=== PATIENT | female | born 1995 | race Caucasian/White ===

== ENCOUNTER 2020-10-27 16:01 | Emergency (ER) | payer BC ==
[2020-10-27 16:04] VITALS: O2SAT 100
[2020-10-27] MEDS ORDERED: Sodium Chloride 0.9% 1000 ML 1,000 ML IV STA (16:07)
[2020-10-27] MEDS ORDERED: Sodium Chloride 0.9% 1000 ML 1,000 ML ONE (16:17)
[2020-10-27 16:25] LABS: Absolute Neutrophil Ct (ANC) 10.87 (1.4-6.9); BASOPHIL % 0.2 % (0.0-0.4); Basophil (Absolute #) 0.03 (0-0.4); Eosinophil % 1.3 % (0.00-5.0); Hematocrit 41.4 % (35-47); Hemoglobin 13.6 gm/dl (12.0-16.0); Lymphocytes % 17.5 % (24.0-44.0); Mean Cell Volume 89.8 fl (78-100); Mean Corpuscular Hemoglobin 29.5 pg (26-32); Mean Corpuscular Hgb Concent. 32.9 g/dl (32-36); Mean Platelet Volume 9.7 fl (7.5-11.0); Monocyte (Absolute #) 1.12 (0.0-1.3); Monocytes % 7.6 % (0.0-12.0); Neutrophil % 73.4 % (36.0-66.0); Platelet Count 399 K/mm3 (150-450); Red Blood Count 4.61 M/mm3 (4.1-5.4); Red Cell Distribution Width 12.1 % (11.5-14.0); White Blood Count 14.8 K/mm3 (4.0-10.5)
[2020-10-27 16:47] LABS: Appearance CLOUDY (CLEAR); Bacteria MANY /HPF (NEGATIVE); Bilirubin NEGATIVE (NEGATIVE); Blood LARGE Ery/ul (0-5); Epithelial Cells RARE /HPF (FEW); Glucose 50 mg/dL (NEGATIVE); Ketones SMALL (NEGATIVE); Leukocyte Esterase TRACE (NEGATIVE); Nitrite POSITIVE (NEGATIVE); Protein,Urine Dip 100 (Negative); Specific Gravity 1.027 (1.005-1.025); Urobilinogen NEGATIVE mg/dL (0-1); WBC >100 /HPF (0-5)
[2020-10-27 16:48] LABS: RBC >101 /HPF (0-2)
[2020-10-27 16:58] LABS: ALBUMIN 3.9 g/dL (3.5-5.0); ALKALINE PHOSPHATASE 58 U/L (38-126); ANION GAP 11.5 MEQ/L (5-15); BLOOD UREA NITROGEN 7 mg/dL (7-17); CHLORIDE 105 mmol/L (98-107); Carbon Dioxide 22 mmol/L (22-30); Creatinine 1 0.59 mg/dL (0.52-1.04); EST GLOMERULAR FILTRATION RATE > 60.0 ML/MIN; Glucose 86 mg/dL (74-106); Potassium 3.4 mmol/L (3.5-5.1); SGOT/AST 31 U/L (14-36); SGPT/ALT 31 U/L (0-35); SODIUM 136 mmol/L (137-145); Total Protein 6.8 g/dL (6.3-8.2)
[2020-10-27 17:16] VITALS: BP 123/76; PULSE 89
--- NOTE | 2020-10-27 17:20 | ERPHSYRPT ---
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 pt reports minor lower back discomfort/cramping. pt is approx 9 weeks with estimated due date of 05/29/21. Triage Nursing Assessment: pt is aox3, afebrile, resps easy and non labored, radial pulses strong and equal, cap refill < 3 seconds, pt skin pink warm dry. pt abd soft, non tender. Physician History: Patient is a 2 para 0 AB 1 who presents at 9 weeks gestation with some bright red bleeding for 30 minutes. She has been using panty liners she has had no to minimal cramping passed no clots. Have a miscarriage at 5 weeks in March 2020 Timing/Duration: today Activites at Onset: none Pain Radiation: none Severity of Pain-Max: none Severity of Pain-Current: none Prior abdominal problems: similar symptoms Associated Symptoms: , other (Bright red bleeding without clots) Allergies/Adverse Reactions: No Known Drug Allergies Allergy (Unverified 10/27/20 16:21) Hx Tetanus, Diphtheria Vaccination/Date Given: Yes Hx Influenza Vaccination/Date Given: Yes Hx Pneumococcal Vaccination/Date Given: No Travel Risk - International Travel Have you traveled outside of the country in past 3 weeks: No - Coronavirus Screening Are you exhibiting any of the following symptoms?: No Close contact with a COVID-19 positive Pt in past 14-21 Days: No - Vaccine Status Have you recieved a Covid-19 vaccination: No - Review of Systems Constitutional: No Fever, No Chills Eyes: No Symptoms Ears, Nose, & Throat: No Symptoms Respiratory: No Cough, No Dyspnea Cardiac: No Chest Pain, No Edema, No Syncope Abdominal/Gastrointestinal: No Abdominal Pain, No Nausea, No Vomiting, No Diarrhea Genitourinary Symptoms: Vaginal Bleeding, No Dysuria Musculoskeletal: No Back Pain, No Neck Pain Skin: No Rash Neurological: No Dizziness, No Focal Weakness, No Sensory Changes Psychological: No Symptoms Endocrine: No Symptoms All Other Systems: Reviewed and Negative - Past Medical History Pertinent Past Medical History: No - Past Surgical History Past Surgical History: No - Social History Smoking Status: Never smoker Drug Use: none Patient Lives Alone: No - Female History Hx Last Menstrual Period: 08/2020 Hx Now: Yes Expected Date of Delivery: 05/29/21 - Nursing Vital Signs Nursing Vital Signs: Initial Vital Signs Temperature 97.9 F 10/27/20 16:02 Pulse Rate 98 H 10/27/20 16:02 Respiratory Rate 20 10/27/20 16:02 Blood Pressure 162/70 10/27/20 16:02 O2 Sat by Pulse Oximetry 100 10/27/20 16:02 Pain Scale Pain Intensity 0 - Physical Exam General Appearance: mild distress, alert Eye Exam: PERRL/EOMI, eyes nml inspection Ears, Nose, Throat Exam: normal ENT inspection, TMs normal, pharynx normal, moist mucous membranes Neck Exam: normal inspection, non-tender, supple, full range of motion Respiratory Exam: normal breath sounds, lungs clear, No respiratory distress Cardiovascular Exam: regular rate/rhythm, normal heart sounds, normal peripheral pulses Gastrointestinal/Abdomen Exam: soft, No tenderness, No mass Back Exam: normal inspection, normal range of motion, No CVA tenderness, No vertebral tenderness Extremity Exam: normal inspection, normal range of motion, pelvis stable Neurologic Exam: alert, oriented x 3, cooperative, mental health counselor II-XII nml as tested, normal mood/affect, sensation nml, No motor deficits Skin Exam: normal color, warm, dry Lymphatic Exam: No adenopathy SpO2: 100 - Radiology Ultrasound Exam OB Ultrasound: Other (Ultrasound was done initial report is that everything is normal except for a very small subchorionic hemorrhage otherwise normal heart tones 178) Ordered Tests: Active Orders 24 hr Category Date Time Status Heart Tones-ED STAT Care 10/27/20 16:07 Active OB <14 WKS 1ST GESTATION [US] Stat Exams 10/27/20 17:04 Taken CBC W DIFF Stat Lab 10/27/20 16:05 Completed CMP Stat Lab 10/27/20 16:05 Completed CULTURE,URINE Stat Lab 10/27/20 16:16 Received UA W/RFX UR CULTURE Stat Lab 10/27/20 16:16 Completed Medication Summary Generic Name Dose Route Start Last Admin Trade Name Freq PRN Reason Stop Dose Admin Sodium Chloride 1,000 mls @ 999 mls/hr 10/27/20 16:07 10/27/20 16:24 Sodium Chloride 0.9% 1000 Ml IV 10/27/20 17:07 999 mls/hr .[id number] STA Administration Discontinued Medications Generic Name Dose Route Start Last Admin Trade Name Juan Ramon PRN Reason Stop Dose Admin Sodium Chloride Confirm 10/27/20 16:17 Sodium Chloride 0.9% 1000 Ml Administered 10/27/20 16:18 Dose 1,000 mls @ ud .ROUTE .[facility] Lab/Rad Data: Laboratory Result Diagrams 10/27/20 16:05 10/27/20 16:05 Laboratory Results 10/27/20 10/27/20 10/27/20 Range/Units 16:16 16:05 16:05 WBC 14.8 H (4.0-10.5) K/mm3 RBC 4.61 (4.1-5.4) M/mm3 Hgb 13.6 (12.0-16.0) gm/dl Hct 41.4 (35-47) % MCV 89.8 (78-100) fl MCH 29.5 (26-32) pg MCHC 32.9 (32-36) g/dl RDW 12.1 (11.5-14.0) % Plt Count 399 (150-450) K/mm3 MPV 9.7 (7.5-11.0) fl Gran % 73.4 H (36.0-66.0) % Eos # (Auto) 0.20 (0-0.5) Absolute Lymphs (auto) 2.60 (1.0-4.6) Absolute Monos (auto) 1.12 (0.0-1.3) Lymphocytes % 17.5 L (24.0-44.0) % Monocytes % 7.6 (0.0-12.0) % Eosinophils % 1.3 (0.00-5.0) % Basophils % 0.2 (0.0-0.4) % Absolute Granulocytes 10.87 H (1.4-6.9) Basophils # 0.03 (0-0.4) Sodium 136 L (137-145) mmol/L Potassium 3.4 L (3.5-5.1) mmol/L Chloride 105 (98-107) mmol/L Carbon Dioxide 22 (22-30) mmol/L Anion Gap 11.5 (5-15) MEQ/L BUN 7 (7-17) mg/dL Creatinine 0.59 (0.52-1.04) mg/dL Estimated GFR > 60.0 ML/MIN Glucose 86 (74-106) mg/dL Calcium 9.0 (8.4-10.2) mg/dL Total Bilirubin 0.20 (0.2-1.3) mg/dL AST 31 (14-36) U/L ALT 31 (0-35) U/L Alkaline Phosphatase 58 (38-126) U/L Serum Total Protein 6.8 (6.3-8.2) g/dL Albumin 3.9 (3.5-5.0) g/dL Urine Color RED (YELLOW) Urine Appearance CLOUDY (CLEAR) Urine pH 6.0 (5-6) Ur Specific Vowinckel 1.027 (1.005-1.025) Urine Protein 100 (Negative) Urine Ketones SMALL (NEGATIVE) Urine Blood LARGE (0-5) Major/ul Urine Nitrite POSITIVE (NEGATIVE) Urine Bilirubin NEGATIVE (NEGATIVE) Urine Urobilinogen NEGATIVE (0-1) mg/dL Ur Leukocyte Esterase TRACE (NEGATIVE) Urine WBC (Auto) >100 (0-5) /HPF Urine RBC (Auto) >101 (0-2) /HPF U Epithel Cells (Auto) RARE (FEW) /HPF Urine Bacteria (Auto) MANY (NEGATIVE) /HPF Urine Culture Reflexed YES (NO) Urine Glucose 50 (NEGATIVE) mg/dL - Progress Progress: improved Air Movement: fair - Departure Departure Disposition: Home Clinical Impression: Threatened miscarriage in early Condition: Stable Critical Care Time: No Referrals: CARMELITA COONEY [Primary Care Provider] - Instructions: Bleeding With (DC)
--- NOTE | 2020-10-27 17:45 | XRAY ---
Exam: OB ultrasound less than 14 weeks from 10/27/2020. Comparison: None. Indication: Patient with vaginal bleeding. Findings: Transverse and longitudinal transabdominal images of the pelvis were obtained. The maternal uterus measures 9.8 cm in length, 6.0 cm in AP depth, and 6.7 cm in width. It is anteflexed. The uterus contains a normal positioned and shaped gestational sac within the upper uterine segment. The gestational sac contains a single live intrauterine fetus with a heart rate 178 bpm. The crown-rump length measured 2.63 cm consistent with a gestational age of 9 weeks, 3 days plus or -0 weeks, 6 days yielding an estimated due date of 05/29/2021. This is in good accordance with the gestational age by dates (also 9 weeks, 3 days). A 3.8 mm yolk sac is seen within the gestational sac. There is a suggestion of a small 1.5 cm x 0.4 cm x 1.6 cm subchorionic hemorrhage at the inferior posterior margin of the gestational sac. The human performance technologist also took an image of a tiny hypoechoic density measuring about 8 mm x 7.5 mm in cross section within the superior aspect of the uterine fundus. I don't believe this is significant. There is no free intraperitoneal fluid within the cul-de-sac. The maternal right ovary measures 2.9 cm x 2.6 cm x 2.5 cm and reveals normal color blood flow and Doppler signal within it. The maternal left ovary measures 3.3 cm x 2.8 cm x 1.6 cm and reveals normal color blood flow and Doppler signal within it. Impression: 1. Single live intrauterine fetus within a normal positioned and shaped gestational sac within the upper uterine segment. The crown-rump length of the fetus suggest a gestational age of 9 weeks, 3 days. heart rate is 178 bpm. A 3.8 mm yolk sac was seen. No abnormal fluid is seen extending into the lower uterine canal. 2. Incidentally, there appears to be a small subchorionic hemorrhage at the inferior posterior margin of the gestational sac, as discussed above. 3. Both maternal ovaries appeared unremarkable. No evidence of ovarian torsion was seen.. There was no evidence of free intraperitoneal fluid within the cul-de-sac.
== END 2020-10-27 17:45 | disposition home or self-care (01) ==
LOC: ED 16:01
DX: O20.0 Threatened abortion (principal); Z3A.09 9 weeks gestation of pregnancy
CPT/HCPCS: 36415; 76801; 80053; 81001; 85025; 86901; 87086; 96360; 99284

== ENCOUNTER 2021-05-13 18:08 | Observation (INO) | payer BC ==
[2021-05-13 18:42] LABS: Appearance SLIGHTLY CLOUDY (CLEAR); Bacteria FEW /HPF (NEGATIVE); Bilirubin NEGATIVE (NEGATIVE); Blood NEGATIVE Ery/ul (0-5); Epithelial Cells FEW /HPF (FEW); Glucose NEGATIVE (NEGATIVE); Ketones SMALL (NEGATIVE); Leukocyte Esterase MODERATE (NEGATIVE); Mucus MODERATE /HPF (NEGATIVE); Nitrite NEGATIVE (NEGATIVE); Protein,Urine Dip 100 (Negative); RBC 0-2 /HPF (0-2); Specific Gravity 1.031 (1.005-1.025); Urobilinogen NEGATIVE mg/dL (0-1)
[2021-05-13 18:49] VITALS: BP 128/72; PULSE 92
[2021-05-13] MEDS ORDERED: Macrobid 100MG Capsule ONE (19:59)
[2021-05-13] MEDS ORDERED: Macrobid 100MG Capsule PO ONE (20:00)
== END 2021-05-13 20:15 | disposition home or self-care (01) ==
LOC: OB 18:08
PROVIDERS: ADMIT Obstetrics & Gynecology; ATTEND Obstetrics & Gynecology
DX: Z34.83 Encounter for supervision of other normal pregnancy, third trimester (principal); Z3A.37 37 weeks gestation of pregnancy
CPT/HCPCS: 81001; 87086; G0378; A9270-GY

== ENCOUNTER 2021-05-18 16:56 | Observation (INO) | payer BC ==
[2021-05-18 17:33] VITALS: BP 135/76; PULSE 106; O2SAT 97
== END 2021-05-18 18:10 | disposition home or self-care (01) ==
LOC: OB 16:56
PROVIDERS: ADMIT Obstetrics & Gynecology; ATTEND Obstetrics & Gynecology
DX: Z34.83 Encounter for supervision of other normal pregnancy, third trimester (principal); Z3A.38 38 weeks gestation of pregnancy
CPT/HCPCS: G0378

== ENCOUNTER 2021-05-19 10:30 | Inpatient (IN) | payer BC ==
[2021-05-19] MEDS ORDERED: Ephedrine Sulfate 50 MG/ML IV PRN (10:57)
[2021-05-19] MEDS ORDERED: Lactated Ringers 1,000 ML IV ONE (10:57)
[2021-05-19] MEDS ORDERED: OB EPIDURAL NAROPIN/SUFENTANIL IN NACL EPIDURAL PRN (10:57)
[2021-05-19] MEDS ORDERED: Nubain 10 MG/ML IV PRN (10:59)
[2021-05-19] MEDS ORDERED: XYLOCAINE 1% HCL 20 ML MDV IJ PRN (10:59)
[2021-05-19] MEDS ORDERED: STADOL 2 MG IV PRN (10:59)
[2021-05-19] MEDS ORDERED: Zofran 4 MG/2 ML VIAL IV PRN (10:59)
[2021-05-19] MEDS ORDERED: PITOCIN 30 UNITS/ LR 500 ML 30 UNITS/500 ML PLAST..BAG IV SCH ×2 (11:00→12:30)
[2021-05-19] MEDS ORDERED: FENTANYL 2 MCG-BUPIV 0.125%-NS 250 ML Epidur 250 ML EPIDURAL PRN (11:11)
[2021-05-19 11:39] LABS: Absolute Neutrophil Ct (ANC) 15.07 (1.4-6.9); BASOPHIL % 0.2 % (0.0-0.4); Basophil (Absolute #) 0.04 (0-0.4); Eosinophil % 1.6 % (0.00-5.0); Eosinophil (Absolute #) 0.29 (0-0.5); Hemoglobin 10.8 gm/dl (12.0-16.0); Lymphocyte (Absolute #) 1.51 (1.0-4.6); Lymphocytes % 8.4 % (24.0-44.0); Mean Cell Volume 91.6 fl (78-100); Mean Corpuscular Hemoglobin 28.3 pg (26-32); Mean Corpuscular Hgb Concent. 30.9 g/dl (32-36); Monocyte (Absolute #) 1.13 (0.0-1.3); Monocytes % 6.3 % (0.0-12.0); Neutrophil % 83.5 % (36.0-66.0); Platelet Count 306 K/mm3 (150-450); Red Blood Count 3.82 M/mm3 (4.1-5.4); Red Cell Distribution Width 12.7 % (11.5-14.0)
[2021-05-19] MEDS ORDERED: BRETHINE 1 MG/ML SQ PRN (12:29)
[2021-05-19 12:46] LABS: ABO TYPING A; Antibody Screen NEGATIVE (NEGATIVE); RH TYPING POSITIVE
[2021-05-19] MEDS ORDERED: CORTISONE 1% CREAM TP PRN (17:44)
[2021-05-19] MEDS ORDERED: Dermoplast Spray TP PRN (17:44)
[2021-05-19] MEDS ORDERED: LANSINOH 40 GM TOP PRN (17:44)
[2021-05-19] MEDS ORDERED: TUCKS TP PRN (17:44)
[2021-05-19] MEDS: Colace 100 MG PO SCH (21:00)
[2021-05-19] MEDS: MOTRIN 400 MG PO PRN (22:45)
[2021-05-19] MEDS: TYLENOL EXTRA STRENGTH 500 MG PO PRN (23:23)
[2021-05-20] MEDS: TYLENOL EXTRA STRENGTH 500 MG PO PRN (03:08)
[2021-05-20] MEDS ORDERED: MOTRIN 400 MG ONE (06:07)
[2021-05-20] MEDS: MOTRIN 400 MG PO PRN ×2 (06:09→17:24)
[2021-05-20 07:09] LABS: Hemoglobin 9.9 gm/dl (12.0-16.0); Mean Corpuscular Hemoglobin 28.4 pg (26-32); Mean Corpuscular Hgb Concent. 30.9 g/dl (32-36); Platelet Count 284 K/mm3 (150-450); Red Blood Count 3.48 M/mm3 (4.1-5.4); Red Cell Distribution Width 12.9 % (11.5-14.0); White Blood Count 23.6 K/mm3 (4.0-10.5)
[2021-05-20] MEDS ORDERED: Adacel Vial IM ONE (08:00)
[2021-05-20 08:33] LABS: ANISOCYTOSIS 1+; BAND 2 % (0.0-2.0); Eosinophil 2 % (0.00-3.0); Lymphocytes 14 % (24-44); Monocyte 3 % (0.0-12.0); Neutrophils 79 % (36.0-66.0); Platelet Estimate NORMAL (NORMAL); Total Cells Counted 100; Toxic Granulation 1+
[2021-05-20] MEDS ORDERED: FERREX 150 PO SCH (10:00)
--- NOTE | 2021-05-20 10:12 | PCM.NOTE ---
Date and Time: 05/20/21 1010 Subjective Assessment: PPD 1 SP PT RESTING IN BED AND DOING WELL. PT AMBNULATING AND TOLERATING DIET VSS AFEBRILE ABD; SOFT UTERUS; FIRM LOCHIA; MILD A/P SP PPD 1 WITH UTI PT DESIRES TO BE DISCHARGED TODAY WILL GO HOME ON KEFLEX 500MG Q 6 HRS SHOULD FU IN OFFICE IN 3 WKS OBJECTIVE DATA Vital Signs: Vital Signs - 24 hr Temp Pulse Resp BP BP Pulse Ox 05/20/21 05:00 96.4 F 97 H 18 120/61 05/19/21 23:30 98.9 F 101 H 18 107/60 05/19/21 20:00 99.1 F 113 H 20 126/75 05/19/21 18:40 98.2 F 117 H 20 118/62 98 05/19/21 17:30 98.2 F 106 H 16 109/74 98 05/19/21 17:15 98.2 F 100 H 16 102/63 05/19/21 17:00 98.2 F 112 H 16 101/63 05/19/21 16:24 98.2 F 100 H 20 162/60 05/19/21 16:15 98.2 F 100 H 20 162/60 05/19/21 16:00 104 H 20 135/97 05/19/21 15:15 103 H 20 115/53 05/19/21 15:00 100 H 20 127/76 05/19/21 14:45 96 H 20 124/57 05/19/21 14:15 104 H 20 138/74 05/19/21 14:00 100 H 20 134/64 05/19/21 13:45 94 H 20 124/70 05/19/21 13:30 98 H 20 125/76 05/19/21 13:15 98 H 20 125/76 05/19/21 13:00 100 H 20 120/73 98 05/19/21 12:00 97.8 F 100 H 20 114/65 98 05/19/21 11:30 97.8 F 102 H 20 114/78 125/71 98 05/19/21 11:00 97.8 F 114 H 20 130/75 98 05/19/21 10:45 114 H 20 130/75 05/19/21 10:30 90 18 114/69 Pain Assessment - Last Documented Pain Intensity [Bilateral 8 Posterior] Pain Intensity 2 Pain Scale Used 0-10 Pain Scale Intake and Output: Intake & Output 05/17/21 05/18/21 05/19/21 05/20/21 11:59 11:59 11:59 11:59 Intake Total 800 Balance 800 Weight 103.419 kg Lab Results: Lab Results-Last 24 Hours 05/19/21 05/19/21 05/20/21 Range/Units 10:59 11:30 06:56 WBC 18.0 H 23.6 H (4.0-10.5) K/mm3 RBC 3.82 L 3.48 L (4.1-5.4) M/mm3 Hgb 10.8 L 9.9 L (12.0-16.0) gm/dl Hct 35.0 32.0 L (35-47) % MCV 91.6 92.0 (78-100) fl MCH 28.3 28.4 (26-32) pg MCHC 30.9 L 30.9 L (32-36) g/dl RDW 12.7 12.9 (11.5-14.0) % Plt Count 306 284 (150-450) K/mm3 MPV 11.0 11.0 (7.5-11.0) fl Gran % 83.5 H (36.0-66.0) % Eos # (Auto) 0.29 (0-0.5) Absolute Lymphs (auto) 1.51 (1.0-4.6) Absolute Monos (auto) 1.13 (0.0-1.3) Lymphocytes % 8.4 L (24.0-44.0) % Monocytes % 6.3 (0.0-12.0) % Eosinophils % 1.6 (0.00-5.0) % Basophils % 0.2 (0.0-0.4) % Absolute Granulocytes 15.07 H (1.4-6.9) Segmented Neutrophils 79 H (36.0-66.0) % Band Neutrophils 2 (0.0-2.0) % Lymphocytes (Manual) 14 L (24-44) % Monocytes (Manual) 3 (0.0-12.0) % Eosinophils (Manual) 2 (0.00-3.0) % Basophils # 0.04 (0-0.4) Toxic Granulation 1+ Platelet Estimate NORMAL (NORMAL) RBC Morphology ABNORMAL Anisocytosis 1+ ABO Group A Rh Factor POSITIVE Antibody Screen NEGATIVE (NEGATIVE) Assessment/Plan (1) Vaginal delivery Current Visit: Yes Status: Acute Code(s): O80 - ENCOUNTER FOR FULL-TERM UNCOMPLICATED DELIVERY
--- NOTE | 2021-05-20 10:18 | PCM.DS ---
Discharge Summary Date of Admission: 05/19/21 10:30 Admitting Physician: KATARZYNA JACINTO DO Primary Care Provider: CARMELITA COONEY Allergies Allergies No Known Drug Allergies Allergy (Unverified 10/27/20 16:21) Hospital Summary - Hospital Course Hospital Course: PT ADMITTED ON MAY 19 FOR BEING IN LABOR AND SUBSEQUENTLY DELIVERED LIVE BABY BOY VIA WITHOUT COMPLICATION. DURING PERIOD DID WELL HOWEVER NOTED HAVING ELEVATED WBC. PT WITH KNOWN HX OF UTI DID NOT TAKE HER DOSE OF MACROBID. PT DESIRES DISCHARGE TODAY AND WILL GO HOME HOWEVER WILL GIVE RX OF KEFLEX QID FOR 7 DAYS. ALL QUESTIONS ANSWERED TO HER SATISFACTION AND AT THIS TIME SINCE VSS WILL GO HOME WITH FU IN 3 WKS. - Vitals & Intake/Output Vital Signs: Vital Signs Temperature 96.4 F 05/20/21 05:00 Pulse Rate 97 H 05/20/21 05:00 Respiratory Rate 18 05/20/21 05:00 Blood Pressure 120/61 05/20/21 05:00 O2 Sat by Pulse Oximetry 98 05/19/21 18:40 Intake & Output: Intake & Output 05/17/21 05/18/21 05/19/21 05/20/21 11:59 11:59 11:59 11:59 Intake Total 800 Balance 800 Weight 103.419 kg - Lab Result Diagrams: 05/20/21 06:56 Lab Results-Last 24 Hrs: Lab Results-Last 24 Hours 05/19/21 05/19/21 05/20/21 Range/Units 10:59 11:30 06:56 WBC 18.0 H 23.6 H (4.0-10.5) K/mm3 RBC 3.82 L 3.48 L (4.1-5.4) M/mm3 Hgb 10.8 L 9.9 L (12.0-16.0) gm/dl Hct 35.0 32.0 L (35-47) % MCV 91.6 92.0 (78-100) fl MCH 28.3 28.4 (26-32) pg MCHC 30.9 L 30.9 L (32-36) g/dl RDW 12.7 12.9 (11.5-14.0) % Plt Count 306 284 (150-450) K/mm3 MPV 11.0 11.0 (7.5-11.0) fl Gran % 83.5 H (36.0-66.0) % Eos # (Auto) 0.29 (0-0.5) Absolute Lymphs (auto) 1.51 (1.0-4.6) Absolute Monos (auto) 1.13 (0.0-1.3) Lymphocytes % 8.4 L (24.0-44.0) % Monocytes % 6.3 (0.0-12.0) % Eosinophils % 1.6 (0.00-5.0) % Basophils % 0.2 (0.0-0.4) % Absolute Granulocytes 15.07 H (1.4-6.9) Segmented Neutrophils 79 H (36.0-66.0) % Band Neutrophils 2 (0.0-2.0) % Lymphocytes (Manual) 14 L (24-44) % Monocytes (Manual) 3 (0.0-12.0) % Eosinophils (Manual) 2 (0.00-3.0) % Basophils # 0.04 (0-0.4) Toxic Granulation 1+ Platelet Estimate NORMAL (NORMAL) RBC Morphology ABNORMAL Anisocytosis 1+ ABO Group A Rh Factor POSITIVE Antibody Screen NEGATIVE (NEGATIVE) Final Diagnosis/Problem List - Final Discharge Diagnosis/Problem (1) Vaginal delivery Current Visit: Yes Status: Acute Code(s): O80 - ENCOUNTER FOR FULL-TERM UNCOMPLICATED DELIVERY - Discharge Disposition: Home, Self-Care Condition: Stable Prescriptions: New Cephalexin Mh 500 mg [Keflex 500 mg] 500 mg PO Q6H 7 Days #28 cap No Action Vits W-Ca,Fe,FA(<1Mg) [] 1 tablet PO DAILY Nitrofurantoin Monohyd/M-Cryst [Macrobid 100 mg Capsule] 100 mg PO BID 7 Days #14 cap Follow up with: CARMELITA COONEY NP [Primary Care Provider] - KATARZYNA JACINTO DO [ACTIVE STAFF] - 3 weeks
[2021-05-20] MEDS: Colace 100 MG PO SCH (10:31)
[2021-05-20] MEDS: KEFLEX 500 MG PO SCH ×2 (11:25→17:24)
[2021-05-20 17:44] VITALS: BP 103/50; PULSE 81; O2SAT 97
== END 2021-05-20 18:34 | disposition home or self-care (01) | DRG 769 ==
LOC: OB 10:30 → UNDOADMOB 10:30 → INTOOBSV 10:30 → OBSVTOIN 10:30
PROVIDERS: ADMIT Obstetrics & Gynecology; ATTEND Obstetrics & Gynecology
PROC: 0KQM0ZZ Repair Perineum Muscle, Open Approach (ICD-10-PCS; principal; 2021-05-19)
DX: O70.1 Second degree perineal laceration during delivery (principal); Z3A.38 38 weeks gestation of pregnancy; Z37.0 Single live birth; R79.89 Other specified abnormal findings of blood chemistry
CPT/HCPCS: 36415; 59400; 85025; 86850; 86900; 86901; 90715; 96372; J2590; A9270-GY

== ENCOUNTER 2021-09-05 00:31 | Observation (INO) | payer BC ==
[2021-09-05] MEDS ORDERED: Zofran 4 MG/2 ML VIAL ONE ×2 (00:48→04:57)
[2021-09-05] MEDS ORDERED: Sodium Chloride 0.9% 1000 ML 1,000 ML IV STA ×2 (00:48→02:35)
[2021-09-05] MEDS ORDERED: Sodium Chloride 0.9% 1000 ML 1,000 ML ONE ×2 (00:48→02:36)
[2021-09-05] MEDS ORDERED: Zofran 4 MG/2 ML VIAL IV ONE ×2 (00:48→04:50)
--- NOTE | 2021-09-05 01:04 | ERPHSYRPT ---
- History of Present Illness Time Seen by Provider: 09/05/21 01:00 Historian: patient Exam Limitations: no limitations Patient Subjective Stated Complaint: "I woke up with real bad abdominal pain." Triage Nursing Assessment: Patient reported being awoke around 2300 on 09/04/20 with acute onset epigastric/RUQ abdominal pain. Physician History: This is a 26-year-old white female patient of nurse practitioner Tyler who had sudden onset of acute right upper quadrant abdominal pain and epigastric pain that woke her out from a sleep with associated nausea and 7 episodes of diarrhea. He had no prior episodes of this. Patient stated the pain is sharp and cramping with no radiation to the back. She feels bloated and nauseated. Patient ate [place] food last evening. Her spouse did not experience similar symptoms. She denies chest pain. She denies shortness of breath. Timing/Duration: yesterday, worse Activities at Onset: sleep Quality: sharpness, stabbing Abdominal Pain Onset Location: RUQ Severity of Pain-Max: moderate Severity of Pain-Current: moderate Associated Symptoms: diarrhea, nausea, No chest pain, No shortness of breath Previous symptoms: no prior history, no recent treatment Allergies/Adverse Reactions: No Known Drug Allergies Allergy (Unverified 09/05/21 00:41) Home Medications: Sertraline HCl 50 mg [Zoloft 50 mg Tablet] 50 mg PO AC 09/05/21 [History] Hx Tetanus, Diphtheria Vaccination/Date Given: Yes Hx Influenza Vaccination/Date Given: Yes Hx Pneumococcal Vaccination/Date Given: No Travel Risk - International Travel Have you traveled outside of the country in past 3 weeks: No - Coronavirus Screening Are you exhibiting any of the following symptoms?: No Close contact with a COVID-19 positive Pt in past 14-21 Days: No - Vaccine Status Have you recieved a Covid-19 vaccination: No - Review of Systems Constitutional: No Symptoms Eyes: No Symptoms Ears, Nose, & Throat: No Symptoms Respiratory: No Symptoms Cardiac: No Symptoms Abdominal/Gastrointestinal: Abdominal Pain, Nausea, Diarrhea, No Vomiting Genitourinary Symptoms: No Symptoms Musculoskeletal: No Symptoms Skin: No Symptoms Neurological: No Symptoms Psychological: No Symptoms Endocrine: No Symptoms Hematologic/Lymphatic: No Symptoms Immunological/Allergic: No Symptoms All Other Systems: Reviewed and Negative - Past Medical History Pertinent Past Medical History: No Neurological History: No Pertinent History ENT History: No Pertinent History Cardiac History: No Pertinent History Respiratory History: No Pertinent History Endocrine Medical History: No Pertinent History Musculoskeletal History: No Pertinent History GI Medical History: No Pertinent History History: No Pertinent History Psycho-Social History: No Pertinent History Female Reproductive Disorders: No Pertinent History - Past Surgical History Past Surgical History: No Neuro Surgical History: No Pertinent History Cardiac: No Pertinent History Respiratory: No Pertinent History Gastrointestinal: No Pertinent History Genitourinary: No Pertinent History Musculoskeletal: No Pertinent History Female Surgical History: No Pertinent History - Social History Smoking Status: Never smoker Exposure to second hand smoke: No Drug Use: none Patient Lives Alone: Yes - Female History Hx Now: No - Nursing Vital Signs Nursing Vital Signs: Initial Vital Signs Temperature 98.6 F 09/05/21 00:31 Pulse Rate 92 H 09/05/21 00:31 Respiratory Rate 18 09/05/21 00:31 Blood Pressure 129/87 09/05/21 00:31 O2 Sat by Pulse Oximetry 99 09/05/21 00:31 Pain Scale Pain Intensity 2 - Physical Exam General Appearance: mild distress, alert, anxiety Eye Exam: PERRL/EOMI, eyes nml inspection Ears, Nose, Throat Exam: normal ENT inspection, moist mucous membranes Neck Exam: normal inspection, non-tender, supple, full range of motion Respiratory Exam: normal breath sounds, lungs clear, airway intact, No chest tenderness, No respiratory distress Cardiovascular Exam: regular rate/rhythm, normal heart sounds, normal peripheral pulses Gastrointestinal/Abdomen Exam: soft, normal bowel sounds, tenderness (Upper quadrant and epigastric region), guarding, No rebound Pelvic Exam: not done Rectal Exam: not done Back Exam: normal inspection, normal range of motion, No CVA tenderness, No vertebral tenderness Extremity Exam: normal inspection, normal range of motion, pelvis stable Neurologic Exam: alert, oriented x 3, cooperative, 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, normal mood/affect, nml cerebellar function, nml station & gait, sensation nml Skin Exam: normal color, warm, dry Lymphatic Exam: No adenopathy SpO2 Interpretation: normal SpO2: 99 O2 Delivery: Room Air - Course Nursing assessment & vital signs reviewed: Yes Ordered Tests: Active Orders 24 hr Category Date Time Status IV Insertion STAT Care 09/05/21 01:03 Active ABDOMEN AND PELVIS W/0 CONTRAS [CT] Stat Exams 09/05/21 01:39 Taken AMYLASE Stat Lab 09/05/21 01:09 Completed CBC W DIFF Stat Lab 09/05/21 01:09 Completed CMP Stat Lab 09/05/21 01:09 Completed HCG,QUALITATIVE URINE Stat Lab 09/05/21 01:09 Completed LIPASE Stat Lab 09/05/21 01:09 Completed Lactic Acid Stat Lab 09/05/21 01:11 Completed Transfer Order Routine Transfer 09/05/21 Ordered Medication Summary Generic Name Dose Route Start Last Admin Trade Name Freq PRN Reason Stop Dose Admin Sodium Chloride 500 mls @ 500 mls/hr 09/05/21 04:48 09/05/21 05:02 Sodium Chloride 0.9% 500 Ml IV 09/05/21 05:47 500 mls/hr .Q1H ONE Administration Metronidazole 500 mg in 100 mls @ 200 mls/hr 09/05/21 04:52 09/05/21 05:01 Flagyl 500 Mg Ivpb IV 09/05/21 05:21 200 mls/hr STAT STA 200 mls/hr Administration Discontinued Medications Generic Name Dose Route Start Last Admin Trade Name Juan Ramon PRN Reason Stop Dose Admin Sodium Chloride 1,000 mls @ 999 mls/hr 09/05/21 00:48 09/05/21 02:54 Sodium Chloride 0.9% 1000 Ml IV 09/05/21 01:48 0 mls/hr .Q1H1M STA Infusion Sodium Chloride Confirm 09/05/21 00:48 Sodium Chloride 0.9% 1000 Ml Administered 09/05/21 00:49 Dose 1,000 mls @ ud .ROUTE .STK-MED ONE Sodium Chloride 1,000 mls @ 999 mls/hr 09/05/21 02:35 09/05/21 02:44 Sodium Chloride 0.9% 1000 Ml IV 09/05/21 03:35 999 mls/hr .Q1H1M STA Administration Sodium Chloride Confirm 09/05/21 02:36 Sodium Chloride 0.9% 1000 Ml Administered 09/05/21 02:37 Dose 1,000 mls @ ud .ROUTE .STK-MED ONE Metronidazole Confirm 09/05/21 04:57 Flagyl 500 Mg Ivpb Administered 09/05/21 04:58 Dose 500 mg in 100 mls @ ud IV .STK-MED ONE Sodium Chloride Confirm 09/05/21 05:00 Sodium Chloride 0.9% 500 Ml Administered 09/05/21 05:01 Dose 500 mls @ ud IV .STK-MED ONE Ketorolac Tromethamine 30 mg 09/05/21 02:35 09/05/21 02:44 Ketorolac Tromethamine 30 Mg/Ml Inj IV 09/05/21 02:36 30 mg STAT ONE Administration Ketorolac Tromethamine Confirm 09/05/21 02:36 Ketorolac Tromethamine 30 Mg/Ml Inj Administered 09/05/21 02:37 Dose 30 mg .ROUTE .STK-MED ONE Morphine Sulfate 2 mg 09/05/21 01:10 09/05/21 01:14 Morphine Sulfate 2 Mg/Ml Inj IV 09/05/21 01:11 2 mg STAT ONE Administration Morphine Sulfate Confirm 09/05/21 01:12 Morphine Sulfate 2 Mg/Ml Inj Administered 09/05/21 01:13 Dose 2 mg .ROUTE .STK-MED ONE Ondansetron HCl 4 mg 09/05/21 00:48 09/05/21 00:57 Ondansetron Hcl 4 Mg/2 Ml Vial IV 09/05/21 00:49 4 mg STAT ONE Administration Ondansetron HCl Confirm 09/05/21 00:48 Ondansetron Hcl 4 Mg/2 Ml Vial Administered 09/05/21 00:49 Dose 4 mg .ROUTE .STK-MED ONE Ondansetron HCl 4 mg 09/05/21 04:50 09/05/21 04:59 Ondansetron Hcl 4 Mg/2 Ml Vial IV 09/05/21 04:51 4 mg STAT ONE Administration Ondansetron HCl Confirm 09/05/21 04:57 Ondansetron Hcl 4 Mg/2 Ml Vial Administered 09/05/21 04:58 Dose 4 mg .ROUTE .STK-MED ONE Pantoprazole Sodium 40 mg 09/05/21 04:48 09/05/21 04:59 Pantoprazole 40 Mg Vial IV 09/05/21 04:49 40 mg STAT ONE Administration Pantoprazole Sodium Confirm 09/05/21 04:57 Pantoprazole 40 Mg Vial Administered 09/05/21 04:58 Dose 40 mg IV .STK-MED ONE Prochlorperazine Edisylate 5 mg 09/05/21 02:35 09/05/21 02:44 Prochlorperazine Edisylate 10 Mg/2 Ml Vial IV 09/05/21 02:36 5 mg STAT ONE Administration Prochlorperazine Edisylate Confirm 09/05/21 02:36 Prochlorperazine Edisylate 10 Mg/2 Ml Vial Administered 09/05/21 02:37 Dose 10 mg .ROUTE .STK-MED ONE Lab/Rad Data: Laboratory Result Diagrams 09/05/21 01:09 09/05/21 01:09 Laboratory Results 09/05/21 09/05/21 09/05/21 Range/Units 01:30 01:11 01:09 WBC (4.0-10.5) K/mm3 RBC (4.1-5.4) M/mm3 Hgb (12.0-16.0) gm/dl Hct (35-47) % MCV (78-100) fl MCH (26-32) pg MCHC (32-36) g/dl RDW (11.5-14.0) % Plt Count (150-450) K/mm3 MPV (7.5-11.0) fl Gran % (36.0-66.0) % Eos # (Auto) (0-0.5) Absolute Lymphs (auto) (1.0-4.6) Absolute Monos (auto) (0.0-1.3) Lymphocytes % (24.0-44.0) % Monocytes % (0.0-12.0) % Eosinophils % (0.00-5.0) % Basophils % (0.0-0.4) % Absolute Granulocytes (1.4-6.9) Basophils # (0-0.4) Sodium (137-145) mmol/L Potassium (3.5-5.1) mmol/L Chloride (98-107) mmol/L Carbon Dioxide (22-30) mmol/L Anion Gap (5-15) MEQ/L BUN (7-17) mg/dL Creatinine (0.52-1.04) mg/dL Estimated GFR ML/MIN Glucose (74-106) mg/dL Lactic Acid 1.7 (0.4-2.0) Calcium (8.4-10.2) mg/dL Total Bilirubin (0.2-1.3) mg/dL AST (14-36) U/L ALT (0-35) U/L Alkaline Phosphatase (38-126) U/L Serum Total Protein (6.3-8.2) g/dL Albumin (3.5-5.0) g/dL Amylase (30-110) U/L Lipase (23-300) U/L Urinalys Dipstick Clnc Urine Color Urine Appearance Urine pH Ur Specific [place] Urine Protein POC Urine Protein Conf (Negative) Urine Ketones Urine Blood Urine Nitrite Urine Bilirubin Urine Urobilinogen Ur Leukocyte Esterase Urine Leukocytes (NEGATIVE) Urine WBC (Auto) (0-5) /HPF Urine RBC (Auto) (0-2) /HPF U Epithel Cells (Auto) (FEW) /HPF Urine Bacteria (Auto) (NEGATIVE) /HPF Urine RBC (0-5) Major/ul U Non-Squamous Epi Cells Urine Mucus (Auto) (NEGATIVE) /HPF Ur Culture Indicated? Urine Culture Reflexed Urine Glucose (NEGATIVE) mg/dL Urine HCG, Qual NEGATIVE (Negative) Influenza Type A Ag NEGATIVE (NEGATIVE) Influenza Type B Ag NEGATIVE (NEGATIVE) RSV (PCR) NEGATIVE (Negative) SARS-CoV-2 (PCR) NEGATIVE (NEGATIVE) 09/05/21 09/05/21 09/05/21 Range/Units 01:09 01:09 01:09 WBC 14.5 H (4.0-10.5) K/mm3 RBC 4.87 (4.1-5.4) M/mm3 Hgb 14.0 (12.0-16.0) gm/dl Hct 43.1 (35-47) % MCV 88.5 (78-100) fl MCH 28.7 (26-32) pg MCHC 32.5 (32-36) g/dl RDW 13.2 (11.5-14.0) % Plt Count 367 (150-450) K/mm3 MPV 9.8 (7.5-11.0) fl Gran % 81.4 H (36.0-66.0) % Eos # (Auto) 0.13 (0-0.5) Absolute Lymphs (auto) 1.56 (1.0-4.6) Absolute Monos (auto) 0.96 (0.0-1.3) Lymphocytes % 10.8 L (24.0-44.0) % Monocytes % 6.6 (0.0-12.0) % Eosinophils % 0.9 (0.00-5.0) % Basophils % 0.3 (0.0-0.4) % Absolute Granulocytes 11.82 H (1.4-6.9) Basophils # 0.04 (0-0.4) Sodium 138 (137-145) mmol/L Potassium 3.8 (3.5-5.1) mmol/L Chloride 104 (98-107) mmol/L Carbon Dioxide 23 (22-30) mmol/L Anion Gap 14.5 (5-15) MEQ/L BUN 16 (7-17) mg/dL Creatinine 0.72 (0.52-1.04) mg/dL Estimated GFR > 60.0 ML/MIN Glucose 157 H (74-106) mg/dL Lactic Acid (0.4-2.0) Calcium 9.6 (8.4-10.2) mg/dL Total Bilirubin 0.50 (0.2-1.3) mg/dL AST 35 (14-36) U/L ALT 31 (0-35) U/L Alkaline Phosphatase 120 (38-126) U/L Serum Total Protein 7.6 (6.3-8.2) g/dL Albumin 4.6 (3.5-5.0) g/dL Amylase 77 (30-110) U/L Lipase 161 (23-300) U/L Urinalys Dipstick Clnc MAIN LAB Urine Color Cancelled Urine Appearance Cancelled Urine pH Cancelled Ur Specific [place] Cancelled Urine Protein Cancelled POC Urine Protein Conf NEGATIVE (Negative) Urine Ketones Cancelled Urine Blood Cancelled Urine Nitrite Cancelled Urine Bilirubin Cancelled Urine Urobilinogen Cancelled Ur Leukocyte Esterase Cancelled Urine Leukocytes NEGATIVE (NEGATIVE) Urine WBC (Auto) 0-2 (0-5) /HPF Urine RBC (Auto) 3-5 (0-2) /HPF U Epithel Cells (Auto) RARE (FEW) /HPF Urine Bacteria (Auto) NONE SEEN (NEGATIVE) /HPF Urine RBC SMALL (0-5) Major/ul U Non-Squamous Epi Cells Cancelled Urine Mucus (Auto) SLIGHT (NEGATIVE) /HPF Ur Culture Indicated? NO Urine Culture Reflexed Cancelled Urine Glucose NEGATIVE (NEGATIVE) mg/dL Urine HCG, Qual (Negative) Influenza Type A Ag (NEGATIVE) Influenza Type B Ag (NEGATIVE) RSV (PCR) (Negative) SARS-CoV-2 (PCR) (NEGATIVE) - Progress Progress: improved, pain not gone completely, re-examined Progress Note: 09/05/21 04:53 CAT scan of the abdomen pelvis without contrast shows fluid and small bowel loops and colon with mild small bowel wall thickening. No evidence of acute appendicitis. Patient states that she is slowly improving. He said the biggest issue is nausea. She is tolerating clear liquids at this point. 09/05/21 05:03 Medical decision making: This patient has CT evidence of enteritis/colitis. She has leukocytosis. Although improved, my concern is that she would be back into the emergency department because she is still significantly symptomatic. I spoke with Dr. Peter Ortega and she agrees to place the patient in observation, provide IV hydration, IV antiemetics, intravenous Flagyl and obtain repeat labs. Counseled pt/family regarding: lab results, diagnosis, need for follow-up, rad results - Departure Departure Disposition: Observation Clinical Impression: Enteritis, Colitis, Diarrhea Condition: Stable Critical Care Time: No Referrals: CARMELITA COONEY NP [Primary Care Provider] - Follow up/PCP as directed
[2021-09-05] MEDS ORDERED: MORPHINE SULFATE 2 MG INJ IV ONE (01:10)
[2021-09-05] MEDS ORDERED: MORPHINE SULFATE 2 MG INJ ONE (01:12)
[2021-09-05 01:13] LABS: Absolute Neutrophil Ct (ANC) 11.82 (1.4-6.9); Basophil (Absolute #) 0.04 (0-0.4); Eosinophil % 0.9 % (0.00-5.0); Eosinophil (Absolute #) 0.13 (0-0.5); Hematocrit 43.1 % (35-47); Lymphocyte (Absolute #) 1.56 (1.0-4.6); Lymphocytes % 10.8 % (24.0-44.0); Mean Cell Volume 88.5 fl (78-100); Mean Corpuscular Hemoglobin 28.7 pg (26-32); Mean Corpuscular Hgb Concent. 32.5 g/dl (32-36); Mean Platelet Volume 9.8 fl (7.5-11.0); Monocyte (Absolute #) 0.96 (0.0-1.3); Monocytes % 6.6 % (0.0-12.0); Neutrophil % 81.4 % (36.0-66.0); Platelet Count 367 K/mm3 (150-450); Red Blood Count 4.87 M/mm3 (4.1-5.4); Red Cell Distribution Width 13.2 % (11.5-14.0); White Blood Count 14.5 K/mm3 (4.0-10.5)
[2021-09-05 01:19] LABS: Appearance CLEAR (CLEAR); Bilirubin NEGATIVE (NEGATIVE); Dipstick done @ ? MAIN LAB; Glucose NEGATIVE (NEGATIVE); Ketones NEGATIVE (NEGATIVE); Nitrite NEGATIVE (NEGATIVE); Protein,Urine Dip NEGATIVE (Negative); RBC SMALL Ery/ul (0-5); Specific Gravity 1.025 (1.005-1.025); Urobilinogen 0.2 mg/dL (0-1)
[2021-09-05 01:21] LABS: Bacteria NONE SEEN /HPF (NEGATIVE); Epithelial Cells RARE /HPF (FEW); Mucus SLIGHT /HPF (NEGATIVE); WBC 0-2 /HPF (0-5)
[2021-09-05 01:24] LABS: ALBUMIN 4.6 g/dL (3.5-5.0); ALKALINE PHOSPHATASE 120 U/L (38-126); AMYLASE 77 U/L (30-110); ANION GAP 14.5 MEQ/L (5-15); BLOOD UREA NITROGEN 16 mg/dL (7-17); CHLORIDE 104 mmol/L (98-107); Calcium 9.6 mg/dL (8.4-10.2); Carbon Dioxide 23 mmol/L (22-30); Creatinine 1 0.72 mg/dL (0.52-1.04); EST GLOMERULAR FILTRATION RATE > 60.0 ML/MIN; Glucose 157 mg/dL (74-106); LIPASE 161 U/L (23-300); Potassium 3.8 mmol/L (3.5-5.1); SGOT/AST 35 U/L (14-36); SGPT/ALT 31 U/L (0-35); SODIUM 138 mmol/L (137-145); Total Protein 7.6 g/dL (6.3-8.2)
[2021-09-05 02:10] LABS: INFLUENZA A NEGATIVE (NEGATIVE); INFLUENZA B NEGATIVE (NEGATIVE); RESPIRATORY SYNCTIAL VIRUS NEGATIVE (Negative); SARS-CoV-2 Xpert Express NEGATIVE (NEGATIVE)
[2021-09-05] MEDS ORDERED: Compazine 10 MG/2 ML IV ONE (02:35)
[2021-09-05] MEDS ORDERED: TORAdol 30 mg Injection IV ONE (02:35)
[2021-09-05] MEDS ORDERED: TORAdol 30 mg Injection ONE (02:36)
[2021-09-05] MEDS ORDERED: Compazine 10 MG/2 ML ONE (02:36)
[2021-09-05] MEDS ORDERED: PROTONIX 40 MG IV IV ONE ×2 (04:48→04:57)
[2021-09-05] MEDS ORDERED: Sodium Chloride 0.9% 500 ML 500 ML IV ONE ×2 (04:48→05:00)
[2021-09-05] MEDS ORDERED: FLAGYL 500 MG IVPB 500 MG/100 ML BAG IV STA (04:52)
[2021-09-05] MEDS ORDERED: FLAGYL 500 MG IVPB 500 MG/100 ML BAG IV ONE (04:57)
[2021-09-05] MEDS ORDERED: Hydromorphone 1 mg/ml Injection IV ONE (05:23)
[2021-09-05] MEDS ORDERED: Phenergan 25 MG INJ*** 12.5 MG in Sodium Chloride 0.9% 100 ML BAG 100 ML IV ONE (05:24)
[2021-09-05] MEDS ORDERED: Phenergan 25 MG INJ ONE (05:26)
[2021-09-05] MEDS ORDERED: Hydromorphone 1 mg/ml Injection ONE (05:26)
[2021-09-05] MEDS ORDERED: Sodium Chloride 0.9% 100 ML BAG 100 ML ONE (05:26)
[2021-09-05 05:35] LABS: 027 TOX PROD PRESUMPTIVE NEGATIVE (NEGATIVE); TOXIGENIC C. DIFF ORG NEGATIVE (NEGATIVE)
[2021-09-05] MEDS ORDERED: MORPHINE SULFATE 2 MG INJ IV PRN (06:10)
[2021-09-05] MEDS ORDERED: FLAGYL 500 MG IVPB 500 MG/100 ML BAG IV SCH (06:10)
[2021-09-05] MEDS: Sodium Chloride 0.9% 1000 ML 1,000 ML IV SCH ×3 (07:26→17:52)
[2021-09-05] MEDS ORDERED: MORPHINE SULFATE 4 MG INJ IV PRN ×2 (08:30→08:52)
--- NOTE | 2021-09-05 08:44 | XRAY ---
Indication: Right upper quadrant pain. Nausea and diarrhea. Multiple contiguous axial images obtained through the abdomen and pelvis without contrast. Comparison: None Lung bases clear with incidental right base calcified granuloma. Heart not enlarged. Stomach is distended with food/fluid. Noncontrasted stomach and bowel loops appear nonobstructed. Jejunal bowel loops demonstrates mild circumferential wall thickening favoring enteritis. Normal appendix. No free fluid/air. Remaining liver, gallbladder, pancreas, spleen, adrenal glands, kidneys, ureters, bladder, uterus, and aorta appear unremarkable for noncontrast exam. Osseous structures intact. No ventral or inguinal hernias. Impression: 1. Jejunal bowel wall thickening favoring enteritis. 2. Remaining CT abdomen/pelvis without contrast exam is negative. Comment: Preliminary interpretation made by [facility]. No critical discrepancy.
--- NOTE | 2021-09-05 08:50 | PCM.HP ---
History of Present Illness - Chief Complaint Chief Complaint: Enteritis History of Present Illness: is a 26 year old female pt of [employer] who delivered a baby vaginally 3 mo ago who was admitted through ER with enterocolitis. She went to bed then awoke about 2300 with RUQ /epigastric pain. Sharp/crampy 8/10, with nausea and watery diarrhea x 7. Had eaten dinner, [place] food, last night. CT prelim report says fluid in small bowel loops and colon, with mild small bowel wall thickening which may be seen in enteritis/colitis. appendix nonacute. WBC 14.5. She was given IV morphine, dilaudid, and antiemetics. She did tolerate a small amount of water, but was so symptomatic she was admitted for pain and nausea control. Will do U/S gallbladder. - Review of Systems Abdominal/Gastrointestinal: Abdominal Pain, Nausea, Diarrhea, Appetite Changes Psychological: Depression (post ) All Other Systems: Reviewed and Negative Medications & Allergies Home Medications: Home Medication List Sertraline HCl 50 mg [Zoloft 50 mg Tablet] 50 mg PO AC 09/05/21 [History Confirmed 09/05/21] Allergies/Adverse Reactions: Allergies Allergy/AdvReac Type Severity Reaction Status Date / Time No Known Drug Allergies Allergy Unverified 09/05/21 00:41 - Past Medical History Past Medical History: No Neurological History: No Pertinent History ENT History: No Pertinent History Cardiac History: No Pertinent History Respiratory History: No Pertinent History Endocrine Medical History: No Pertinent History Musculoskelatal History: No Pertinent History GI Medical History: No Pertinent History History: No Pertinent History Pyscho-Social History: No Pertinent History Reproductive Disorders: No Pertinent History - Female History Are you now?: No - Past Surgical History Past Surgical History: No Neuro Surgical History: No Pertinent History Cardiac History: No Pertinent History Respiratory Surgery: No Pertinent History GI Surgical History: No Pertinent History Genitourinary Surgical Hx: No Pertinent History Musculskeletal Surgical Hx: No Pertinent History Female Surgical History: No Pertinent History - Social History Smoking Status: Never smoker Exposure to second hand smoke: No Alcohol: None Drug Use: none - Physical Exam Vital Signs: Vital Signs - 24 hr Temp Pulse Resp BP BP Pulse Ox 09/05/21 08:03 97.8 F 96 H 20 122/84 98 09/05/21 06:12 97.5 F 93 H 18 129/88 96 09/05/21 06:03 97.5 F 93 H 18 129/88 96 09/05/21 06:00 97.5 F 93 H 16 129/88 96 09/05/21 05:11 99 09/05/21 05:00 88 20 138/87 98 09/05/21 03:00 74 18 112/76 98 09/05/21 02:31 75 18 116/34 98 09/05/21 00:31 98.6 F 92 H 18 129/87 99 General Appearance: mild distress, alert Neurologic Exam: oriented x 3, cooperative, No slurred speech Eye Exam: eyes nml inspection Ears, Nose, Throat Exam: moist mucous membranes Neck Exam: normal inspection, non-tender, No lymphadenopathy, No thyromegaly Respiratory Exam: normal breath sounds, lungs clear, No crackles/rales, No rhonchi, No wheezing Cardiovascular Exam: regular rate/rhythm, normal heart sounds, No murmur Gastrointestinal/Abdomen Exam: soft, No normal bowel sounds (hypoactive, but pre sent), No tenderness, No distention, No mass, No guarding, No rebound Back Exam: normal inspection, No CVA tenderness, No rash Extremity Exam: normal inspection, No pedal edema, No swelling Results - Labs Lab/Micro Results: Lab Results-Last 24 Hours 09/05/21 09/05/21 09/05/21 Range/Units 01:09 01:09 01:09 WBC 14.5 H (4.0-10.5) K/mm3 RBC 4.87 (4.1-5.4) M/mm3 Hgb 14.0 (12.0-16.0) gm/dl Hct 43.1 (35-47) % MCV 88.5 (78-100) fl MCH 28.7 (26-32) pg MCHC 32.5 (32-36) g/dl RDW 13.2 (11.5-14.0) % Plt Count 367 (150-450) K/mm3 MPV 9.8 (7.5-11.0) fl Gran % 81.4 H (36.0-66.0) % Eos # (Auto) 0.13 (0-0.5) Absolute Lymphs (auto) 1.56 (1.0-4.6) Absolute Monos (auto) 0.96 (0.0-1.3) Lymphocytes % 10.8 L (24.0-44.0) % Monocytes % 6.6 (0.0-12.0) % Eosinophils % 0.9 (0.00-5.0) % Basophils % 0.3 (0.0-0.4) % Absolute Granulocytes 11.82 H (1.4-6.9) Basophils # 0.04 (0-0.4) Sodium 138 (137-145) mmol/L Potassium 3.8 (3.5-5.1) mmol/L Chloride 104 (98-107) mmol/L Carbon Dioxide 23 (22-30) mmol/L Anion Gap 14.5 (5-15) MEQ/L BUN 16 (7-17) mg/dL Creatinine 0.72 (0.52-1.04) mg/dL Estimated GFR > 60.0 ML/MIN Glucose 157 H (74-106) mg/dL Lactic Acid (0.4-2.0) Calcium 9.6 (8.4-10.2) mg/dL Total Bilirubin 0.50 (0.2-1.3) mg/dL AST 35 (14-36) U/L ALT 31 (0-35) U/L Alkaline Phosphatase 120 (38-126) U/L Serum Total Protein 7.6 (6.3-8.2) g/dL Albumin 4.6 (3.5-5.0) g/dL Amylase 77 (30-110) U/L Lipase 161 (23-300) U/L Urinalys Dipstick Clnc MAIN LAB Urine Color Cancelled Urine Appearance Cancelled Urine pH Cancelled Ur Specific [place] Cancelled Urine Protein Cancelled POC Urine Protein Conf NEGATIVE (Negative) Urine Ketones Cancelled Urine Blood Cancelled Urine Nitrite Cancelled Urine Bilirubin Cancelled Urine Urobilinogen Cancelled Ur Leukocyte Esterase Cancelled Urine Leukocytes NEGATIVE (NEGATIVE) Urine WBC (Auto) 0-2 (0-5) /HPF Urine RBC (Auto) 3-5 (0-2) /HPF U Epithel Cells (Auto) RARE (FEW) /HPF Urine Bacteria (Auto) NONE SEEN (NEGATIVE) /HPF Urine RBC SMALL (0-5) Major/ul U Non-Squamous Epi Cells Cancelled Urine Mucus (Auto) SLIGHT (NEGATIVE) /HPF Ur Culture Indicated? NO Urine Culture Reflexed Cancelled Urine Glucose NEGATIVE (NEGATIVE) mg/dL Urine HCG, Qual (Negative) C. difficile Screen (NEGATIVE) C.difficile 027-NAP1-B1 (NEGATIVE) Influenza Type A Ag (NEGATIVE) Influenza Type B Ag (NEGATIVE) RSV (PCR) (Negative) SARS-CoV-2 (PCR) (NEGATIVE) 09/05/21 09/05/21 09/05/21 Range/Units 01:09 01:11 01:30 WBC (4.0-10.5) K/mm3 RBC (4.1-5.4) M/mm3 Hgb (12.0-16.0) gm/dl Hct (35-47) % MCV (78-100) fl MCH (26-32) pg MCHC (32-36) g/dl RDW (11.5-14.0) % Plt Count (150-450) K/mm3 MPV (7.5-11.0) fl Gran % (36.0-66.0) % Eos # (Auto) (0-0.5) Absolute Lymphs (auto) (1.0-4.6) Absolute Monos (auto) (0.0-1.3) Lymphocytes % (24.0-44.0) % Monocytes % (0.0-12.0) % Eosinophils % (0.00-5.0) % Basophils % (0.0-0.4) % Absolute Granulocytes (1.4-6.9) Basophils # (0-0.4) Sodium (137-145) mmol/L Potassium (3.5-5.1) mmol/L Chloride (98-107) mmol/L Carbon Dioxide (22-30) mmol/L Anion Gap (5-15) MEQ/L BUN (7-17) mg/dL Creatinine (0.52-1.04) mg/dL Estimated GFR ML/MIN Glucose (74-106) mg/dL Lactic Acid 1.7 (0.4-2.0) Calcium (8.4-10.2) mg/dL Total Bilirubin (0.2-1.3) mg/dL AST (14-36) U/L ALT (0-35) U/L Alkaline Phosphatase (38-126) U/L Serum Total Protein (6.3-8.2) g/dL Albumin (3.5-5.0) g/dL Amylase (30-110) U/L Lipase (23-300) U/L Urinalys Dipstick Clnc Urine Color Urine Appearance Urine pH Ur Specific [place] Urine Protein POC Urine Protein Conf (Negative) Urine Ketones Urine Blood Urine Nitrite Urine Bilirubin Urine Urobilinogen Ur Leukocyte Esterase Urine Leukocytes (NEGATIVE) Urine WBC (Auto) (0-5) /HPF Urine RBC (Auto) (0-2) /HPF U Epithel Cells (Auto) (FEW) /HPF Urine Bacteria (Auto) (NEGATIVE) /HPF Urine RBC (0-5) Major/ul U Non-Squamous Epi Cells Urine Mucus (Auto) (NEGATIVE) /HPF Ur Culture Indicated? Urine Culture Reflexed Urine Glucose (NEGATIVE) mg/dL Urine HCG, Qual NEGATIVE (Negative) C. difficile Screen (NEGATIVE) C.difficile 027-NAP1-B1 (NEGATIVE) Influenza Type A Ag NEGATIVE (NEGATIVE) Influenza Type B Ag NEGATIVE (NEGATIVE) RSV (PCR) NEGATIVE (Negative) SARS-CoV-2 (PCR) NEGATIVE (NEGATIVE) 09/05/21 Range/Units 04:49 WBC (4.0-10.5) K/mm3 RBC (4.1-5.4) M/mm3 Hgb (12.0-16.0) gm/dl Hct (35-47) % MCV (78-100) fl MCH (26-32) pg MCHC (32-36) g/dl RDW (11.5-14.0) % Plt Count (150-450) K/mm3 MPV (7.5-11.0) fl Gran % (36.0-66.0) % Eos # (Auto) (0-0.5) Absolute Lymphs (auto) (1.0-4.6) Absolute Monos (auto) (0.0-1.3) Lymphocytes % (24.0-44.0) % Monocytes % (0.0-12.0) % Eosinophils % (0.00-5.0) % Basophils % (0.0-0.4) % Absolute Granulocytes (1.4-6.9) Basophils # (0-0.4) Sodium (137-145) mmol/L Potassium (3.5-5.1) mmol/L Chloride (98-107) mmol/L Carbon Dioxide (22-30) mmol/L Anion Gap (5-15) MEQ/L BUN (7-17) mg/dL Creatinine (0.52-1.04) mg/dL Estimated GFR ML/MIN Glucose (74-106) mg/dL Lactic Acid (0.4-2.0) Calcium (8.4-10.2) mg/dL Total Bilirubin (0.2-1.3) mg/dL AST (14-36) U/L ALT (0-35) U/L Alkaline Phosphatase (38-126) U/L Serum Total Protein (6.3-8.2) g/dL Albumin (3.5-5.0) g/dL Amylase (30-110) U/L Lipase (23-300) U/L Urinalys Dipstick Clnc Urine Color Urine Appearance Urine pH Ur Specific [place] Urine Protein POC Urine Protein Conf (Negative) Urine Ketones Urine Blood Urine Nitrite Urine Bilirubin Urine Urobilinogen Ur Leukocyte Esterase Urine Leukocytes (NEGATIVE) Urine WBC (Auto) (0-5) /HPF Urine RBC (Auto) (0-2) /HPF U Epithel Cells (Auto) (FEW) /HPF Urine Bacteria (Auto) (NEGATIVE) /HPF Urine RBC (0-5) Major/ul U Non-Squamous Epi Cells Urine Mucus (Auto) (NEGATIVE) /HPF Ur Culture Indicated? Urine Culture Reflexed Urine Glucose (NEGATIVE) mg/dL Urine HCG, Qual (Negative) C. difficile Screen NEGATIVE (NEGATIVE) C.difficile 027-NAP1-B1 PRESUMPTIVE NEGATIVE (NEGATIVE) Influenza Type A Ag (NEGATIVE) Influenza Type B Ag (NEGATIVE) RSV (PCR) (Negative) SARS-CoV-2 (PCR) (NEGATIVE) - Radiology Impressions Radiology Exams & Impressions: Radiology Procedures Category Date Time Status ABDOMEN AND PELVIS W/0 CONTRAS [CT] Stat Exams 09/05/21 01:39 Taken Assessment/Plan (1) Enteritis Current Visit: Yes Status: Acute Assessment & Plan: On flagyl; she did have elevated WBC count. IV fluids and pain meds. If feeling great, could d/c later today. Otherwise, will likely stay until tomorrow. Code(s): K52.9 - NONINFECTIVE GASTROENTERITIS AND COLITIS, UNSPECIFIED (2) Diarrhea Current Visit: Yes Status: Acute Qualifiers: Diarrhea type: unspecified type Qualified Code(s): R19.7 - Diarrhea, unspecified Assessment & Plan: C. diff just reported as negative. GI panel pending. Code(s): R19.7 - DIARRHEA, UNSPECIFIED (3) RUQ pain Current Visit: Yes Status: Acute Assessment & Plan: GB u/s. Code(s): R10.11 - RIGHT UPPER QUADRANT PAIN
[2021-09-05] MEDS ORDERED: ZOLOFT 50 MG TABLET PO SCH (11:30)
--- NOTE | 2021-09-05 12:04 | XRAY ---
Indication: Right upper quadrant pain. Two-dimensional gallbladder sonogram performed. Comparison: None Pancreas not well-seen due to overlying bowel gas. Gallbladder normally distended with a few gallstones, largest 1.1 cm. No abnormal gallbladder wall thickening or pericholecystic fluid. Common bile duct measures 4.1 mm. No intrahepatic biliary distention. Remaining visualized liver and right kidney are sonographically unremarkable. Right kidney measures 9.3 cm in length. Impression: Nonvisualization pancreas. Cholelithiasis without cholecystitis.
[2021-09-05] MEDS: FLAGYL 500 MG IVPB 500 MG/100 ML BAG IV SCH ×2 (12:11→17:01)
[2021-09-05] MEDS: Zofran 4 MG/2 ML VIAL IV PRN (19:33)
[2021-09-05] MEDS: TYLENOL 325 MG PO PRN (19:58)
[2021-09-06] MEDS: FLAGYL 500 MG IVPB 500 MG/100 ML BAG IV SCH ×5 (01:10→23:17)
[2021-09-06 06:12] LABS: Absolute Neutrophil Ct (ANC) 4.31 (1.4-6.9); Basophil (Absolute #) 0.01 (0-0.4); Eosinophil % 3.9 % (0.00-5.0); Eosinophil (Absolute #) 0.24 (0-0.5); Hematocrit 38.7 % (35-47); Lymphocyte (Absolute #) 1.11 (1.0-4.6); Lymphocytes % 17.8 % (24.0-44.0); Mean Cell Volume 92.8 fl (78-100); Mean Corpuscular Hemoglobin 28.8 pg (26-32); Mean Platelet Volume 9.9 fl (7.5-11.0); Monocyte (Absolute #) 0.55 (0.0-1.3); Monocytes % 8.8 % (0.0-12.0); Neutrophil % 69.3 % (36.0-66.0); Platelet Count 262 K/mm3 (150-450); Red Blood Count 4.17 M/mm3 (4.1-5.4); Red Cell Distribution Width 13.3 % (11.5-14.0); White Blood Count 6.2 K/mm3 (4.0-10.5)
[2021-09-06] MEDS: PROTONIX 40 MG IV IV SCH (08:59)
[2021-09-06] MEDS: ZOLOFT 50 MG TABLET PO SCH (08:59)
[2021-09-06] MEDS: Zofran 4 MG/2 ML VIAL IV PRN (10:24)
[2021-09-06 10:25] LABS: ALBUMIN 3.2 g/dL (3.5-5.0); ALKALINE PHOSPHATASE 72 U/L (38-126); ANION GAP 10.2 MEQ/L (5-15); BLOOD UREA NITROGEN 6 mg/dL (7-17); CHLORIDE 112 mmol/L (98-107); Carbon Dioxide 22 mmol/L (22-30); Creatinine 1 0.76 mg/dL (0.52-1.04); EST GLOMERULAR FILTRATION RATE > 60.0 ML/MIN; Glucose 96 mg/dL (74-106); Potassium 3.1 mmol/L (3.5-5.1); SGOT/AST 36 U/L (14-36); SGPT/ALT 26 U/L (0-35); SODIUM 140 mmol/L (137-145)
[2021-09-06 11:09] LABS: Calcium 7.5 mg/dL (8.4-10.2)
[2021-09-06] MEDS: Sodium Chloride 0.9% 1000 ML 1,000 ML IV SCH ×3 (13:28→22:21)
[2021-09-06] MEDS ORDERED: Klor Con 10 MEQ PO ONE (16:51)
--- NOTE | 2021-09-06 17:16 | PCM.NOTE ---
Date and Time: 09/06/21 1710 Subjective Assessment: Patient continues to have diarrhea but has improved,tolerated chicken noodle soup and PNB/jelly sandwich at lunch. She is tender RUQ on exam today and Scan showed gallstones. Gen Surgery will be consulting later today. Patient is on IV fluids and flagyl for enteritis. Objective Exam General Appearance: no apparent distress Neurologic Exam: alert, oriented x 3, cooperative, normal mood/affect Skin Exam: normal color, warm, dry Eye Exam: eyes nml inspection Ears, Nose, Throat Exam: normal ENT inspection Neck Exam: normal inspection Respiratory Exam: normal breath sounds Cardiovascular Exam: regular rate/rhythm Gastrointestinal/Abdomen Exam: soft, tenderness (RUQ,BS present ,no guarding) Extremity Exam: normal inspection Back Exam: normal inspection Pelvic Exam: deferred OBJECTIVE DATA Vital Signs: Vital Signs - 24 hr Temp Pulse Resp BP BP Pulse Ox 09/06/21 16:00 97.5 F 77 18 118/85 96 09/06/21 11:47 97.8 F 77 18 119/81 97 09/06/21 07:44 99.5 F 93 H 18 97/56 97 09/06/21 04:00 98.9 F 76 20 122/79 99 09/06/21 00:00 99.1 F 76 20 111/67 129/88 100 09/05/21 20:11 99.1 F 76 20 111/67 100 09/05/21 20:00 99.5 F 106 H 18 105/57 129/88 97 Pain Assessment - Last Documented Pain Intensity 2 Pain Scale Used 0-10 Pain Scale Intake and Output: Intake & Output 09/04/21 09/05/21 09/06/21 09/07/21 11:59 11:59 11:59 11:59 Intake Total 20 3833 1605 Output Total 2 0 Balance 20 3831 1605 Weight 101.015 kg 101.015 kg Lab Results: Lab Results-Last 24 Hours 09/06/21 09/06/21 Range/Units 05:30 05:30 WBC 6.2 (4.0-10.5) K/mm3 RBC 4.17 (4.1-5.4) M/mm3 Hgb 12.0 (12.0-16.0) gm/dl Hct 38.7 (35-47) % MCV 92.8 (78-100) fl MCH 28.8 (26-32) pg MCHC 31.0 L (32-36) g/dl RDW 13.3 (11.5-14.0) % Plt Count 262 (150-450) K/mm3 MPV 9.9 (7.5-11.0) fl Gran % 69.3 H (36.0-66.0) % Eos # (Auto) 0.24 (0-0.5) Absolute Lymphs (auto) 1.11 (1.0-4.6) Absolute Monos (auto) 0.55 (0.0-1.3) Lymphocytes % 17.8 L (24.0-44.0) % Monocytes % 8.8 (0.0-12.0) % Eosinophils % 3.9 (0.00-5.0) % Basophils % 0.2 (0.0-0.4) % Absolute Granulocytes 4.31 (1.4-6.9) Basophils # 0.01 (0-0.4) Sodium 140 (137-145) mmol/L Potassium 3.1 L (3.5-5.1) mmol/L Chloride 112 H (98-107) mmol/L Carbon Dioxide 22 (22-30) mmol/L Anion Gap 10.2 (5-15) MEQ/L BUN 6 L (7-17) mg/dL Creatinine 0.76 (0.52-1.04) mg/dL Estimated GFR > 60.0 ML/MIN Glucose 96 (74-106) mg/dL Calcium 7.5 L D (8.4-10.2) mg/dL Total Bilirubin 0.40 (0.2-1.3) mg/dL AST 36 (14-36) U/L ALT 26 (0-35) U/L Alkaline Phosphatase 72 (38-126) U/L Serum Total Protein 6.0 L (6.3-8.2) g/dL Albumin 3.2 L (3.5-5.0) g/dL Radiology Exams: Radiology Procedures Category Date Time Status ABDOMEN AND PELVIS W/0 CONTRAS [CT] Stat Exams 09/05/21 01:39 Completed GALLBLADDER [US] Routine Exams 09/05/21 14:04 Completed Multi-Disciplinary Progress Notes: Multi-Disciplinary Progress Notes 09/06/21 11:16 Case Management Note by Nelly Clayton REVIEWED CHART- NO NEW NEEDS IDENTIFIED FOR DC AT THIS TIME. WILL CONTINUE TO FOLLOW Initialized on 09/06/21 11:16 - END OF NOTE Assessment/Plan (1) Enteritis Current Visit: Yes Status: Acute Assessment & Plan: diarrhea has improved but still liquid stool this morning,less pain Code(s): K52.9 - NONINFECTIVE GASTROENTERITIS AND COLITIS, UNSPECIFIED (2) Diarrhea Current Visit: Yes Status: Acute Qualifiers: Diarrhea type: unspecified type Qualified Code(s): R19.7 - Diarrhea, unspecified Assessment & Plan: improved with Tx enteritis Code(s): R19.7 - DIARRHEA, UNSPECIFIED (3) Hypokalemia due to loss of potassium Current Visit: Yes Status: Acute Assessment & Plan: po Kdur 20meq now and repeat dose in 2 hours with a snack. recheck level in AM Code(s): E87.6 - HYPOKALEMIA (4) Gall bladder stones Current Visit: Yes Status: Acute Assessment & Plan: tender RUQ and diarrhea- Gen Surg to consult Code(s): K80.20 - CALCULUS OF GALLBLADDER W/O CHOLECYSTITIS W/O OBSTRUCTION
[2021-09-06] MEDS ORDERED: Klor Con 10 MEQ PO SCH (20:00)
[2021-09-06] MEDS: TYLENOL 325 MG PO PRN (20:40)
[2021-09-07 04:59] LABS: Absolute Neutrophil Ct (ANC) 3.07 (1.4-6.9); Basophil (Absolute #) 0.02 (0-0.4); Eosinophil % 5.4 % (0.00-5.0); Eosinophil (Absolute #) 0.31 (0-0.5); Hematocrit 37.3 % (35-47); Hemoglobin 11.7 gm/dl (12.0-16.0); Lymphocyte (Absolute #) 1.44 (1.0-4.6); Lymphocytes % 25.3 % (24.0-44.0); Mean Corpuscular Hemoglobin 29.2 pg (26-32); Mean Corpuscular Hgb Concent. 31.4 g/dl (32-36); Mean Platelet Volume 9.9 fl (7.5-11.0); Monocyte (Absolute #) 0.85 (0.0-1.3); Monocytes % 14.9 % (0.0-12.0); Platelet Count 254 K/mm3 (150-450); Red Blood Count 4.01 M/mm3 (4.1-5.4); Red Cell Distribution Width 13.2 % (11.5-14.0); White Blood Count 5.7 K/mm3 (4.0-10.5)
[2021-09-07] MEDS: FLAGYL 500 MG IVPB 500 MG/100 ML BAG IV SCH ×2 (05:06→15:56)
[2021-09-07 05:28] LABS: ALBUMIN 3.2 g/dL (3.5-5.0); ALKALINE PHOSPHATASE 72 U/L (38-126); ANION GAP 9.9 MEQ/L (5-15); BLOOD UREA NITROGEN 4 mg/dL (7-17); CHLORIDE 112 mmol/L (98-107); Calcium 8.1 mg/dL (8.4-10.2); Carbon Dioxide 21 mmol/L (22-30); Creatinine 1 0.63 mg/dL (0.52-1.04); EST GLOMERULAR FILTRATION RATE > 60.0 ML/MIN; Glucose 89 mg/dL (74-106); Potassium 3.7 mmol/L (3.5-5.1); SGOT/AST 62 U/L (14-36); SGPT/ALT 67 U/L (0-35); SODIUM 139 mmol/L (137-145); Total Protein 5.9 g/dL (6.3-8.2)
[2021-09-07] MEDS: ZOLOFT 50 MG TABLET PO SCH (08:30)
[2021-09-07] MEDS: TYLENOL 325 MG PO PRN (08:30)
[2021-09-07] MEDS ORDERED: Sensorcaine 0.25% 10 ML ONE ×2 (08:55→12:46)
[2021-09-07] MEDS ORDERED: Lactated Ringers 1,000 ML IV ONE (08:55)
[2021-09-07] MEDS ORDERED: MEFOXIN 2 GM PREMIX** 2 GM/50 ML ML IV SCH (09:00)
[2021-09-07] MEDS: PROTONIX 40 MG IV IV SCH (09:40)
[2021-09-07] MEDS: Sodium Chloride 0.9% 1000 ML 1,000 ML IV SCH (11:47)
[2021-09-07] MEDS ORDERED: SOD CITRATE-CITRIC ACID SOLN PO ONE (12:00)
[2021-09-07] MEDS ORDERED: Pepcid 20 MG VIAL IV SCH (12:00)
[2021-09-07] MEDS ORDERED: TORAdol 30 mg Injection ONE (12:19)
[2021-09-07] MEDS ORDERED: BRIDION 200MG/2ML IV ONE (12:19)
[2021-09-07] MEDS ORDERED: Zemuron 100 MG/10 ML ONE (12:19)
[2021-09-07] MEDS ORDERED: Xylocaine-Mpf 2% 5 Ml Vial ONE (12:19)
[2021-09-07] MEDS ORDERED: Zofran 4 MG/2 ML VIAL ONE (12:19)
[2021-09-07] MEDS ORDERED: SUBLIMAZE 100 MCG/2 ML ONE ×2 (12:19→13:24)
[2021-09-07] MEDS ORDERED: Decadron 4 MG INJ ONE (12:19)
[2021-09-07] MEDS ORDERED: DIPRIVAN 200 MG/20 ML IV ONE (12:19)
[2021-09-07] MEDS ORDERED: Compazine 10 MG/2 ML ONE (13:27)
[2021-09-07] MEDS ORDERED: MORPHINE SULFATE 10 MG/ML ONE (13:32)
[2021-09-07] MEDS ORDERED: NORCO 5/325 MG PO PRN (14:32)
--- NOTE | 2021-09-07 14:41 | OP ---
SURGERY DATE/TIME: 09/07/2021 1220 PREOPERATIVE DIAGNOSIS: Chronic cholecystitis POSTOPERATIVE DIAGNOSIS: Chronic cholecystitis PROCEDURE: Laparoscopic cholecystectomy. SURGEON: Augusto Hubbard M.D. ANESTHESIA: General. SPECIMEN: Gallbladder. ESTIMATED BLOOD LOSS: 10. CONDITION: Patient condition stable. COMPLICATIONS: None. HISTORY: The patient is a 26-year-old female with acute onset of upper abdominal pain, nausea, vomiting and diarrhea. The nausea, vomiting and diarrhea did improve significantly. Her pain did improve but still complaining of some upper abdominal pain. She had a CT scan showing maybe slightly thickened jejunum, possible enteritis. Ultrasound did show multiple gallstones without wall thickening or signs of acute cholecystitis. On exam, she has mild tenderness in the right upper quadrant. No rebound or guarding. Her laboratory studies remained nonobstructed. Discussion was had with the patient that this is likely enteritis causing her acute episode. However, gallstones can be contributing to her right upper quadrant pain and discomfort. It would be reasonable to pursue cholecystectomy. Risks of infection, bleeding, injury to nearby structure, hernia discussed and wished to proceed. FINDINGS: Critical view obtained. DESCRIPTION OF PROCEDURE: The patient is brought to the operating room. General anesthesia introduced and routinely positioned, prepped and draped. Received preoperative antibiotic. A time out performed. Veress needle inserted in left upper quadrant. Opening pressure was 7. Pneumoperitoneum established. A 5 mm Optiview trocar placed in left upper quadrant. An 11 mm infraumbilical trocar was placed and two additional 5 mm trocars were placed in the right upper quadrant. The gallbladder is then routinely retracted. Cystic duct and cystic artery dissected out with a combination of L-hook cautery, [place] and blunt dissection. The critical view is clearly obtained. The cystic duct and artery taken 5 mm metal clip duty officer. Cystic duct and artery divided. Gallbladder taken off the liver bed. A small hole was made in the gallbladder and suctioned out with some spillage of bile but no spillage of stones. The gallbladder is then placed in specimen bag and removed through the 11 trocar site. The trocar is reinserted right upper quadrant re-inspected, irrigated and suctioned until clear. There was good hemostasis. The clips are in good position. The 11 trocar site closed with 0 Vicryl interrupted suture passer. Right upper quadrant ports removed under direct visualization and the left upper quadrant port used for desufflation and removed. The skin closed with 4-0 Vicryl suture. Steri-Strips and sterile dressings applied. All counts were correct. The patient tolerated the procedure well. She was extubated and taken to recovery in stable condition.
[2021-09-07 14:47] VITALS: PULSE 74
[2021-09-07 14:58] VITALS: BP 126/73; O2SAT 98
[2021-09-10 06:07] LABS: Adenovirus F40/41 Not Detected (Not Detected); Astrovirus Not Detected (Not Detected); Campylobacter Not Detected (Not Detected); Cryptosporidium Not Detected (Not Detected); Cyclospora cayetanensis Not Detected (Not Detected); Entamoeba histolytica Not Detected (Not Detected); Enteroaggregative E coli Not Detected (Not Detected); Giardia lamblia Not Detected (Not Detected); Norovirus GI/GII Detected (Not Detected); Plesiomonas shigelloides Not Detected (Not Detected); Rotavirus A Not Detected (Not Detected); Salmonella Not Detected (Not Detected); Shigella/Enterinvasive E coli Not Detected (Not Detected); Vibrio Not Detected (Not Detected); Vibrio cholerae Not Detected (Not Detected); Yersinia enterocolitica Not Detected (Not Detected)
[2021-09-10 08:33] LABS: Sapovirus Not Detected (Not Detected)
== END 2021-09-07 17:49 | disposition home or self-care (01) ==
LOC: ED 00:31 → MED SURG 06:00
PROVIDERS: ADMIT Family Medicine; ATTEND Family Medicine
DX: K52.9 Noninfective gastroenteritis and colitis, unspecified (principal); K81.1 Chronic cholecystitis; E87.6 Hypokalemia; Z79.899 Other long term (current) drug therapy; Z20.828 Contact with and (suspected) exposure to other viral communicable diseases
CPT/HCPCS: 0097U; 0241U; 36000; 36415; 47562; 74176; 76705; 80053; 81015; 82150; 83605; 83690; 84703; 85025; 87493; 96360; 96361; 96365; 96374; 96375; 96376; 99285; G0378; J0694; J1100; J1170; J1885; J2270; J2405; J2550; J2704; J3010; A9270-GY